=== PATIENT | female | born 1975 | race African-American/Black ===

== ENCOUNTER 2018-07-28 03:10 | Emergency (ER) | payer BC ==
[~2018-07-28] VITALS: Ht 180.3 cm; Wt 99.8 kg
[2018-07-28 03:15] VITALS: BP 171/103
[2018-07-28 03:47] LABS: BILIRUBIN,URINE NEGATIVE (NEG); CLARITY,URINE CLEAR; COLOR,URINE YELLOW; NITRITE,URINE NEGATIVE (NEG); PH,URINE 6.5; PROTEIN,URINE NEGATIVE (NEG-TRACE)
[2018-07-28 03:57] LABS: SQUAMOUS EPITHELIAL CELL,UR FEW /LPF
[2018-07-28 03:58] LABS: AMORPHOUS SEDIMENT,UR PRESENT /HPF; BACTERIA,URINE FEW /HPF (0-FEW); WBC,URINE OCC /HPF (0-4)
[2018-07-28] MEDS ORDERED: metroNIDAZOLE 500 MG TABLET PO ONE (04:00)
[2018-07-28] MEDS ORDERED: METR500T PO (04:12)
--- NOTE | 2018-07-28 04:12 | PHYS DOC ---
Past Medical History Past Medical History: No Pertinent History Past Surgical History: No Surgical History Alcohol Use: Occasionally Drug Use: None Adult General Chief Complaint Chief Complaint: PELVIC PAIN HPI HPI Patient is a 42 year old [f__sex] who presents with [] Review of Systems Review of Systems Constitutional: Denies fever or chills [] Eyes: Denies change in visual acuity, redness, or eye pain [] HENT: Denies nasal congestion or sore throat [] Respiratory: Denies cough or shortness of breath [] Cardiovascular: No additional information not addressed in HPI [] GI: Denies abdominal pain, nausea, vomiting, bloody stools or diarrhea [] : Denies dysuria or hematuria [] Musculoskeletal: Denies back pain or joint pain [] Integument: Denies rash or skin lesions [] Neurologic: Denies headache, focal weakness or sensory changes [] Endocrine: Denies polyuria or polydipsia [] All other systems were reviewed and found to be within normal limits, except as documented in this note. Current Medications Current Medications Current Medications Medications (Trade) Dose Ordered Sig/Salma Start Time Stop Time Status Last Admin Dose Admin Metronidazole (Flagyl) 500 mg 1X ONCE 07/28/18 04:00 07/28/18 04:01 UNV Physical Exam Physical Exam Constitutional: Well developed, well nourished, no acute distress, non-toxic appearance. [] HENT: Normocephalic, atraumatic, bilateral external ears normal, oropharynx moist, no oral exudates, nose normal. [] Eyes: PERRLA, EOMI, conjunctiva normal, no discharge. [] Neck: Normal range of motion, no tenderness, supple, no stridor. [] Cardiovascular:Heart rate regular rhythm, no murmur [] Lungs & Thorax: Bilateral breath sounds clear to auscultation [] Abdomen: Bowel sounds normal, soft, no tenderness, no masses, no pulsatile masses. [] Skin: Warm, dry, no erythema, no rash. [] Back: No tenderness, no CVA tenderness. [] Extremities: No tenderness, no cyanosis, no clubbing, ROM intact, no edema. [] Neurologic: Alert and oriented X 3, normal motor function, normal sensory function, no focal deficits noted. [] Psychologic: Affect normal, judgement normal, mood normal. [] Current Patient Data Vital Signs Vital Signs Date Time Temp Pulse Resp B/P (MAP) Pulse Ox O2 Delivery O2 Flow Rate FiO2 07/28/18 03:15 98.2 89 18 171/103 (125) 99 Room Air 98.2 Lab Values Laboratory Tests Test 07/28/18 03:20 07/28/18 03:36 Urine Collection Type Unknown Urine Color Yellow Urine Clarity Clear Urine pH 6.5 Urine Specific [place]beck 1.025 Urine Protein Negative mg/dL (NEG-TRACE) Urine Glucose (UA) Negative mg/dL (NEG) Urine Ketones (Stick) Negative mg/dL (NEG) Urine Blood Moderate (NEG) Urine Nitrite Negative (NEG) Urine Bilirubin Negative (NEG) Urine Urobilinogen Dipstick 1.0 mg/dL (0.2 mg/dL) Urine Leukocyte Esterase Negative (NEG) Urine RBC 6-10 /HPF (0-2) Urine WBC Occ /HPF (0-4) Urine Squamous Epithelial Cells Few /LPF Urine Amorphous Sediment Present /HPF Urine Bacteria Few /HPF (0-FEW) Urine Mucus Mod /LPF POC Urine HCG, Qualitative Hcg negative (Negative) Microbiology 07/28/18 Wet Prep - Final, Complete EKG EKG [] Radiology/Procedures Radiology/Procedures [] Course & Med Decision Making Course & Med Decision Making Pertinent Labs and Imaging studies reviewed. (See chart for details) [] Dragon Disclaimer Dragon Disclaimer This electronic medical record was generated, in whole or in part, using a voice recognition dictation system. Departure Departure Impression: Primary Impression: Retained tampon Additional Impression: Bacterial vaginitis Disposition: 01 HOME, SELF-CARE Condition: STABLE Patient Instructions: Bacterial Vaginosis, [id number], Vaginal Foreign Body, [id number] Scripts Metronidazole (FLAGYL) 500 Mg Tablet 500 MG PO BID for 7 Days, #14 TAB Prov: ODALYS LANE DO 07/28/18 Problem Qualifiers Primary Impression: Retained tampon Encounter type: initial encounter Qualified Codes: T19.2XXA - Foreign body in vulva and vagina, initial encounter OADLYS LANE DO July 28, 2018 04:12
[2018-07-30 14:11] LABS: GC PROBE Negative (Negative)
== END 2018-07-28 04:50 | disposition home or self-care (01) ==
LOC: ER 03:10
DX: T19.2XXA Foreign body in vulva and vagina, initial encounter (principal); N76.0 Acute vaginitis; B96.89 Other specified bacterial agents as the cause of diseases classified elsewhere; X58.XXXA Exposure to other specified factors, initial encounter; Y93.89 Activity, other specified; Y92.89 Other specified places as the place of occurrence of the external cause; Y99.8 Other external cause status
CPT/HCPCS: 81001; 81025; 87491; 87591; 99284; Q0111

== ENCOUNTER 2019-02-10 07:56 | Emergency (ER) | payer BC ==
[~2019-02-10] VITALS: Ht 180.3 cm; Wt 99.8 kg
[~2019-02-10 07:56] MED LIST: METR500T PO
[2019-02-10] MEDS ORDERED: IBUPROFEN 200 MG TABLET. PO ONE (08:15)
--- NOTE | 2019-02-10 08:15 | PHYS DOC ---
Past Medical History Past Medical History: Hypertension Alcohol Use: Occasionally Drug Use: None Adult General Chief Complaint Chief Complaint: HAND PROBLEM HPI HPI Patient is a 43-year-old female who presents to the emergency department for e valuation of atraumatic hand pain, primarily at her left third and fourth metacarpal heads, which has developed over the past 2 days. She took a dose of ibuprofen at home with no relief. She has not had any numbness or weakness, but is unable to fully flex her fist secondary to pain. She denies any other symptoms, no rashes, no fevers or chills, no chest pain or shortness of breath. She is noted to be hypertensive, and states that she has a history of hypertension, and has not been taking medication for over a year, she states she recently moved to this area from [place] and does not have any local physicians. Review of Systems Review of Systems Constitutional: Denies fever or chills [] Eyes: Denies change in visual acuity, redness, or eye pain [] HENT: Denies nasal congestion or sore throat [] Respiratory: Denies cough or shortness of breath [] Cardiovascular: No additional information not addressed in HPI [] GI: Denies abdominal pain, nausea, vomiting, bloody stools or diarrhea [] : Denies dysuria or hematuria. Denies . [] Musculoskeletal: Denies back pain or joint pain, other than as noted in the history of present illness. [] Integument: Denies rash or skin lesions [] Neurologic: Denies headache, focal weakness or sensory changes [] Endocrine: Denies polyuria or polydipsia [] All other systems were reviewed and found to be within normal limits, except as documented in this note. Current Medications Current Medications Current Medications Medications (Trade) Dose Ordered Sig/Salma Start Time Stop Time Status Last Admin Dose Admin Ibuprofen (Motrin) 600 mg 1X ONCE 02/10/19 08:15 02/10/19 08:16 DC 02/10/19 08:28 600 MG Allergies Allergies Allergies Coded Allergies Type Severity Reaction Last Updated Verified No Known Drug Allergies 02/10/19 No Physical Exam Physical Exam PHYSICAL EXAM: CONSTITUTIONAL: Well developed, well nourished HEAD: normocephalic, atraumatic EENT: PERRL, EOMI. Conjunctivae normal color, sclerae non-icteric; moist mucous membranes. NECK: Supple, non-tender; no meningismus. LUNGS: Lungs CTA, breathing even and unlabored. Normal air movement. HEART: Regular rate and rhythm, no murmur CHEST: No deformity; non-tender ABDOMEN: The abdomen is soft, and non-tender, no masses or bruits. EXTREM: Normal ROM; no deformity, no calf tenderness. Normal pulses palpable in all extremities. There is no pedal edema. There is questionable very mild soft tissue edema noted to the dorsal aspect of the left hand over the third and fourth metacarpal heads, with tenderness to palpation in this area. The fingers are nontender, there is no warmth or erythema, there is no palmar soft tissue swelling or tenderness. Remainder the extremities are unremarkable. SKIN: No rash; no diaphoresis NEURO: Alert; normal speech and cognition; CN's grossly intact; strength grossly intact without focal deficit. BACK: No CVA TTP. Current Patient Data Vital Signs Vital Signs Date Time Temp Pulse Resp B/P (MAP) Pulse Ox O2 Delivery O2 Flow Rate FiO2 02/10/19 08:03 97.6 88 16 208/130 (156) 98 97.6 Lab Values Laboratory Tests Test 02/10/19 08:11 White Blood Count 6.6 x10^3/uL (4.0-11.0) Red Blood Count 4.88 x10^6/uL (3.50-5.40) Hemoglobin 12.8 g/dL (12.0-15.5) Hematocrit 38.8 % (36.0-47.0) Mean Corpuscular Volume 80 fL (79-100) Mean Corpuscular Hemoglobin 26 pg (25-35) Mean Corpuscular Hemoglobin Concent 33 g/dL (31-37) Red Cell Distribution Width 17.1 % (11.5-14.5) H Platelet Count 300 x10^3/uL (140-400) Neutrophils (%) (Auto) 53 % (31-73) Lymphocytes (%) (Auto) 36 % (24-48) Monocytes (%) (Auto) 9 % (0-9) Eosinophils (%) (Auto) 1 % (0-3) Basophils (%) (Auto) 1 % (0-3) Neutrophils # (Auto) 3.5 x10^3/uL (1.8-7.7) Lymphocytes # (Auto) 2.3 x10^3/uL (1.0-4.8) Monocytes # (Auto) 0.6 x10^3/uL (0.0-1.1) Eosinophils # (Auto) 0.1 x10^3/uL (0.0-0.7) Basophils # (Auto) 0.1 x10^3/uL (0.0-0.2) Sodium Level 137 mmol/L (136-145) Potassium Level 4.0 mmol/L (3.5-5.1) Chloride Level 104 mmol/L (98-107) Carbon Dioxide Level 24 mmol/L (21-32) Anion Gap 9 (6-14) Blood Urea Nitrogen 9 mg/dL (7-20) Creatinine 0.7 mg/dL (0.6-1.0) Estimated GFR (Cockcroft-Gault) 109.5 Glucose Level 96 mg/dL (70-99) Calcium Level 8.5 mg/dL (8.5-10.1) C-Reactive Protein, Quantitative 2.9 mg/L (0-3.3) Laboratory Tests 02/10/19 08:11 Laboratory Tests 02/10/19 08:11 EKG EKG [] Radiology/Procedures Radiology/Procedures PROCEDURE: HAND LEFT 3V HAND LEFT 3V DATE: 02/10/2019 8:05 AM INDICATION: Fourth digit pain and swelling in the region of the MCP joint COMPARISON: None. FINDINGS: Bones: Small ossific fragment along the base of the fourth proximal phalanx. Joints: The joint spaces are normal. Miscellaneous: None. IMPRESSION: Small ossific fragment along the base of the fourth proximal phalanx, which may represent a fracture fragment. Donor site not seen with certainty, but most likely the base of the fourth proximal phalanx given location.[] Course & Med Decision Making Course & Med Decision Making Pertinent Labs and Imaging studies reviewed. (See chart for details) []Patient was given resources for local physicians to establish primary care, I discussed importance of close follow-up, use of NSAIDs for pain control, splint until follow-up and splint care, and return precautions. SPLINT APPLICATION: An ulnar gutter splint was placed on the left hand, PMS intact postplacement, splint inspected by myself postplacement. Dragon Disclaimer Dragon Disclaimer This electronic medical record was generated, in whole or in part, using a voice recognition dictation system. Departure Departure Impression: Primary Impression: Hypertension Additional Impression: Hand fracture Disposition: HOME, SELF-CARE Condition: STABLE Referrals: DAHLIA MAR MD Patient Instructions: Cast or Splint Care, Hand Fracture, Hypertension Additional Instructions: Ibuprofen 400-600 mg every 6 hours as needed for pain. Use the list of local primary care providers to help establish a local physician for further outpatient follow-up. Scripts Lisinopril/Hydrochlorothiazide (LISINOPRIL-HCTZ 10-12.5 MG TAB) 1 Each Tablet 1 TAB PO DAILY, #30 TAB 0 Refills Prov: JESUS HENRY MD 02/10/19 Problem Qualifiers JESUS HENRY MD Feb 10, 2019 08:15
[2019-02-10 08:41] LABS: BASO # 0.1 x10^3/uL (0.0-0.2); BASO % 1 % (0-3); EOS # 0.1 x10^3/uL (0.0-0.7); EOS % 1 % (0-3); HEMATOCRIT 38.8 % (36.0-47.0); HEMOGLOBIN 12.8 g/dL (12.0-15.5); LYMPH # 2.3 x10^3/uL (1.0-4.8); LYMPH % 36 % (24-48); MEAN CORPUSCULAR HEMOGLOBIN 26 pg (25-35); MEAN CORPUSCULAR HGB CONC 33 g/dL (31-37); MEAN CORPUSCULAR VOLUME 80 fL (79-100); MONO # 0.6 x10^3/uL (0.0-1.1); MONO % 9 % (0-9); NEUT # 3.5 x10^3/uL (1.8-7.7); NEUT % 53 % (31-73); PLATELET COUNT 300 x10^3/uL (140-400); RED BLOOD COUNT 4.88 x10^6/uL (3.50-5.40); RED CELL DISTRIBUTION WIDTH 17.1 % (11.5-14.5); WHITE BLOOD COUNT 6.6 x10^3/uL (4.0-11.0)
[2019-02-10 08:44] LABS: CALCIUM 8.5 mg/dL (8.5-10.1); CREATININE 0.7 mg/dL (0.6-1.0); GFR 109.5
[2019-02-10 08:46] LABS: C-REACTIVE PROTEIN 2.9 mg/L (0-3.3)
--- NOTE | 2019-02-10 09:03 | RAD ---
HAND LEFT 3V DATE: 02/10/2019 8:05 AM INDICATION: Fourth digit pain and swelling in the region of the MCP joint COMPARISON: None. FINDINGS: Bones: Small ossific fragment along the base of the fourth proximal phalanx. Joints: The joint spaces are normal. Miscellaneous: None. IMPRESSION: Small ossific fragment along the base of the fourth proximal phalanx, which may represent a fracture fragment. Donor site not seen with certainty, but most likely the base of the fourth proximal phalanx given location. Electronically signed by: Nicholas Livingston MD (02/10/2019 9:00 AM) [facility]
[2019-02-10] MEDS ORDERED: LISI1TAB23 PO (09:12)
[2019-02-10 09:25] VITALS: BP 205/114
== END 2019-02-10 09:25 | disposition home or self-care (01) ==
LOC: ER 07:56
DX: S62.615A Displaced fracture of proximal phalanx of left ring finger, initial encounter for closed fracture (principal); I10 Essential (primary) hypertension; X58.XXXA Exposure to other specified factors, initial encounter; Y93.89 Activity, other specified; Y92.89 Other specified places as the place of occurrence of the external cause; Y99.8 Other external cause status
CPT/HCPCS: 29125; 36415; 73130; 80048; 85025; 85651; 86140; 99285

== ENCOUNTER 2020-07-26 14:25 | Emergency (ER) | payer BC ==
[~2020-07-26] VITALS: Ht 154.9 cm; Wt 107.0 kg
[~2020-07-26 14:25] MED LIST changes: +AMIODARONE 150 MG/3 ML VIAL ONE; +EPINEPHrine SYRINGE 1 MG/10 ML SYRINGE ONE; +LISI1TAB23 PO; +NALOXONE 0.4 MG/ML VIAL. ONE; +SODIUM BICARB ADULT 8.4% 50 MEQ/50 ML DISP.SYRIN. ONE
[2020-07-26] MEDS ORDERED: PROPOFOL 100 ML IV ONE (15:10)
[2020-07-26] MEDS ORDERED: PROPOFOL 100 ML IV PRN (15:15)
[2020-07-26] MEDS ORDERED: ROCURONIUM 50 MG/5 ML VIAL. IV ONE (15:15)
[2020-07-26] MEDS ORDERED: ETOMIDATE 20 MG/10 ML VIAL. IV ONE (15:15)
[2020-07-26] MEDS ORDERED: AMIODARONE 150 MG in IV DEXTROSE 5% 100ML 100 ML IV ONE (15:30)
[2020-07-26] MEDS ORDERED: SODIUM BICARB ADULT 8.4% 50 MEQ/50 ML DISP.SYRIN. IV ONE (15:30)
[2020-07-26] MEDS ORDERED: NALOXONE 2 MG/2 ML DISP.SYRIN. IV ONE (15:30)
[2020-07-26] MEDS ORDERED: IV NORMAL SALINE 1000ML BAG 1,000 ML IV ONE ×2 (15:30→17:00)
[2020-07-26] MEDS ORDERED: AMIODARONE 150 MG/3 ML VIAL IVP ONE (15:30)
--- NOTE | 2020-07-26 15:40 | PHYS DOC ---
Past Medical History Past Medical History: Hypertension (Untreated) Past Medical History Limited secondary to CODE BLUE Past Surgical History Limited secondary to CODE BLUE Smoking Status: Light Tobacco Smoker Alcohol Use: None Drug Use: None Social History Limited secondary to CODE BLUE General Adult EDM: Chief Complaint: HEADACHE HPI: HPI: Patient is a 44-year-old female presents to the ER today with sudden onset of acute headache 10 out of 10 that started upon waking. Patient reports some associated nausea. While out in triage patient subsequently reported increased nausea with interval syncopal episode. ED team immediately assessed patient in waiting room with concern for agonal breathing. Patient was minimally responsive and therefore brought emergently back to trauma room. At that time it was determined patient without pulses. LANE REID called and CPR initiated. Family reports patient with family history of cerebral aneurysm. Patient has past medical history of hypertension. History of present illness limited secondary to CODE BLUE. Review of Systems: Review of Systems: Review of systems limited secondary to CODE BLUE Heart Score: C/O Chest Pain: N/A Current Medications: Current Medications Medications (Trade) Dose Ordered Sig/Salma Start Time Stop Time Status Last Admin Dose Admin Amiodarone HCl (Cordarone) 150 mg 1X ONCE 07/26/20 15:30 07/26/20 15:31 Amiodarone HCl 150 mg/Dextrose 103 ml @ 618 mls/hr 1X ONCE 07/26/20 15:30 07/26/20 15:39 Amiodarone HCl 450 mg/Dextrose 259 ml @ 33 mls/hr CONT PRN 07/26/20 15:15 Chlorhexidine Gluconate (Peridex) 15 ml BID 07/26/20 21:00 Etomidate (Amidate) 20 mg 1X ONCE 07/26/20 15:15 07/26/20 15:20 DC Naloxone HCl (NARCAN 2mg SYRINGE) 2 mg 1X ONCE 07/26/20 15:30 07/26/20 15:31 Propofol 100 ml @ 0 mls/hr CONT PRN 07/26/20 15:15 Rocuronium [place] (Zemuron) 50 mg 1X ONCE 07/26/20 15:15 07/26/20 15:20 DC Sodium Bicarbonate (Sodium Bicarb Adult 8.4% Syr) 50 meq 1X ONCE 07/26/20 15:30 07/26/20 15:31 Sodium Chloride 1,000 ml @ 1,000 mls/hr 1X ONCE 07/26/20 15:30 07/26/20 16:29 Allergies: Allergies: Allergies Coded Allergies Type Severity Reaction Last Updated Verified No Known Drug Allergies 02/10/19 No Physical Exam: PE: Constitutional: Well developed, well nourished, no acute distress, non-toxic appearance HENT: Normocephalic, atraumatic Eyes: PERRL, EOMI, conjunctiva normal, no discharge Neck: Normal range of motion, no tenderness, supple Lungs & Thorax: No respiratory distress, equal chest rise and fall Abdomen: Soft, no tenderness Skin: Warm, dry, no erythema, no rash Back: No tenderness, no CVA tenderness Extremities: No tenderness, ROM intact, no edema Neurologic: Alert and oriented X 3, normal motor function, normal sensory function, no focal deficits noted Psychologic: Affect normal, judgment normal EKG: EKG: @1508 Sinus tachycardia at 110bpm, NO ST elevation, ST depression noted to V2- V4, t wave inversion I and aVL, no prior EKG per [facility] for comparsion. Radiology/Procedures: Radiology/Procedures: PROCEDURE: CHEST AP ONLY Exam performed: One view chest. Indication: Reason: CODE Blue, s/p intubation / Spl. Instructions: / History: Date of Service: 07/26/2020 3:44 PM Comparison: None available. Single AP semiupright portable view chest findings: Cardiomediastinal silhouette is mildly enlarged, however may relate related to semiupright position.. No acute infiltrates, effusion or pneumothorax is detected. There is a endotracheal tube terminating at the level of clavicles. The bony structures are normal. Impression: No acute cardiopulmonary process is detected. Electronically signed by: Jayne Conner MD (07/26/2020 3:50 PM) [facility] PROCEDURE: CHEST AP ONLY AP chest. HISTORY: Adjustment of endotracheal tube AP view was taken of the chest. Endotracheal tube is at the level the clavicles just above the aortic arch. Heart is normal in size. There is mild gastric distention. There is mild haziness in the lungs from infiltrates or mild edema. There is left retrocardiac atelectasis or infiltrate. IMPRESSION: 1. Endotracheal tube appears in good position. 2. Left retrocardiac atelectasis or infiltrate with air bronchograms. Electronically signed by: Abran Gill MD (07/26/2020 4:25 PM) [facility] PROCEDURE: CT CODE STROKE HEAD WO & CTA HEAD & NECK CT arteriogram the brain before and after contrast, CT arteriogram of the carotid arteries with contrast HISTORY: Code stroke, headache, cardiac arrest CT arteriogram the carotid arteries CT arteriogram the carotid arteries was done using 75 mL Isovue-370 contrast. Sagittal and coronal MIP images were reconstructed. There is motion artifact from respiration. There is mild atelectasis or infiltrates in the upper lobes. There is an endotracheal tube in good position. Origins the great vessels at the aortic arch are widely patent. There are normal vertebral arteries. Both vertebral arteries supply flow to the basilar artery. Common carotid arteries are normal. There is no stenosis at the carotid bifurcations. IMPRESSION: 1. No carotid stenosis noted. 2. Normal vertebral arteries. 3. Mild atelectasis or infiltrates in the upper lobes. 4. Endotracheal tube in good position. End impression CT arteriogram of the brain CT arteriogram of the brain was done before and after contrast. There is mild m otion artifact. There is no skull fracture. Sinuses are clear. There is no intracranial hemorrhage. Ventricles are normal in size. There is no mass effect or shift of the midline. Postcontrast images show the basilar artery is normal. Posterior cerebral a rteries are patent. There is no posterior fossa aneurysm. Intracranial internal carotid arteries are normal. Anterior cerebral arteries are normal. There is a normal anterior communicating artery. Right middle cerebral artery is normal. There is an aneurysm at the bifurcation of the middle cerebral artery on the left. There is aneurysm appears partially thrombosed. Aneurysm is best seen on the sagittal and coronal reconstructions. A major vessel occlusion is not definitively identified. There is no pathologic enhancement. IMPRESSION: 1. Left middle cerebral artery aneurysm. 2. No major vessel occlusion intracranially. 3. No intracranial hemorrhage. 4. Mild motion artifact. FOR INTERNAL CODING PURPOSES Critical result: Findings discussed with ER physician at 07/26/2020 3:55PM. RESULT CODE: (C) PQRS Compliance Statement: One or more of the following individualized dose reduction techniques were utilized for this examination: 1. Automated exposure control 2. Adjustment of the mA and/or kV according to patient size 3. Use of iterative reconstruction technique Electronically signed by: Abran Gill MD (07/26/2020 4:07 PM) [facility] Course & Med Decision Making: Course & Med Decision Making Pertinent Labs and Imaging studies reviewed. (See chart for details) Patient presents with report of 10/10 headache upon waking this morning. Family history of cerebral aneurysm. Patient therefore presented to the ER. After patient was triaged and awaiting room assignment patient reported she became very nauseated and needed to vomit. Patient reportedly vomited in triage with s ubsequent frequent syncopal episode and became unresponsive. Patient was noted to have agonal breathing and was emergently brought back to trauma room. Patient did not have a pulse at that time. ACLS protocol utilized. Patient noted to have V. fib arrest. Patient defibrillated. Amiodarone bolus of 300 mg provided. Intubation performed. Interval return of spontaneous circulation. Patient noted to have significantly elevated blood pressure. History of noncompliance with her blood pressure. Concern for aneurysm and therefore patient sent for code stroke CT head and CTA head and neck. No definitive intracranial hemorrhage appreciated however notation of the left MCA aneurysm appreciated. HTN addressed with Cardene gtt. Sedation with propofol. Amiodorone gtt initated. EKG with some ST depressions. Discussed case with Dr. Peralta (cardiology) who is in agreement with current treatment. Discussed CT findings with Dr. Mills (neurosurgery). Given MCA aneurysm and elevated blood pressure, Dr. Mills recommends transfer to as unable to treat aneurysms at [facility]. Utilized transfer neurology line. Discussed case with . [facility] in agreement for acceptance to Neuro ICU. Dr. Delatorre accepting. Patient with subsequent loss of peripheral line. Given multiple medications/gtts and acuity of condition, decision to place central line. Utilized bedside ultrasound with successful placement of RIJ triple lumen catheter. CXR confirmed good position without pneumothorax. Of note: patient troponin elevated secondary to vfib arrest. Hypokalemia noted. Potassium not able to start before transfer. Patient's blood pressure subsequently became significantly improved/low. Cardene therefore discontinued. Patient with difficulty with sedation only on propofol. Fentanyl and Versed IV pushes provided. Decision to switch to Versed drip. Discussed findings and plan with patient's spouse and family, who acknowledge understanding and agreement with transfer to for further evaluation and t reatment. Dago Disclaimer: Dago Disclaimer: This electronic medical record was generated, in whole or in part, using a voice recognition dictation system. Central Line Central Line : Central Line Lumen: triple Central Line Procedure: sterile drapes applied, sterile dressing applied Central Line Postion: internal jugular (R) Anesthesia: Lidocaine cc's of anesthesia: 3 Complications: none Central Line Post Position: sutured, good blood return, position confirmed w/ CXR Progress Emergent consent obtained. Time out performed. Hand hygiene utilized. Sterile attire donned. Right neck cleaned with ChloraPrep. Sterile drape applied. Bedside ultrasound utilized with visualization of nonpulsatile, oval-shaped, compressible, hypoechoic structure consistent for right internal jugular. Anesthesia obtained via a 30 -gauge hypodermic needle with (3) mL's of lidocaine 1% without epinephrine. Right IJ accessed with needle with successful placement of guidewire and subsequent catheter via Seldinger technique. Guidewire successfully removed. Good blood return from all ports. Flushes with ease to all ports. Sterile dressing applied. Confirmatory x-ray obtained with good placement/positioning of catheter and no pneumothorax.. Patient tolerated procedure well and without difficulty. Intubation Intubation : Intubation Method: orotracheal Tube Size (cm): 7.5 Breath Sounds after Intubation: equal Intubation Complications: no complications Post Intubation Xray: Yes Progress Emergent consent utilized. Time out performed. Hand hygiene utilized. Direct laryngoscopy utilized with Vera blade after RSI medications of 20 mg of etom idate and 50 mg of rocuronium provided. Patient noted to have some white frothy secretions which were suctioned with Yankauer suction catheter. Successful placement of 7.5 cuffed ET tube placed on first attempt and secured in place 22 cm at the lip. Fogging noted in blade with positive CO2 color change. Lungs auscultated and equal bilaterally. Patient placed on ventilator and confirmatory chest x-ray obtained with high riding positioning. ETT advanced to 24cm to lip. Departure Departure Impression: Primary Impression: Cardiac arrest with ventricular fibrillation Additional Impressions: Hypertensive emergency Aneurysm of middle cerebral artery Elevated troponin Hypokalemia Disposition: 02 [facility] (JAY Dr. Delatorre accepting to Neuro ICU) Condition: CRITICAL Referrals: NO PCP (PCP) Critical Care Time Critical care time was 30 minutes which includes time at bedside, spent in discussion of patient's care with specialists and/or family members, with interpretation of laboratory and/or radiological studies and is exclusive of procedures. ODALYS LANE DO July 26, 2020 15:40
[2020-07-26] MEDS ORDERED: IOHEXOL 300 MG/ML 100ML VIAL. IV ONE (15:45)
[2020-07-26] MEDS: AMIODARONE 450 MG in IV DEXTROSE 5% 250 ML IV PRN ×2 (15:52→21:38)
--- NOTE | 2020-07-26 15:52 | RAD ---
Exam performed: One view chest. Indication: Reason: CODE Blue, s/p intubation / Spl. Instructions: / History: Date of Service: 07/26/2020 3:44 PM Comparison: None available. Single AP semiupright portable view chest findings: Cardiomediastinal silhouette is mildly enlarged, however may relate related to semiupright position.. No acute infiltrates, effusion or pneumothorax is detected. There is a endotracheal tube terminatin g at the level of clavicles. The bony structures are normal. Impression: No acute cardiopulmonary process is detected. Electronically signed by: Jayne Conner MD (07/26/2020 3:50 PM) [facility]
--- NOTE | 2020-07-26 16:10 | RAD ---
CT arteriogram the brain before and after contrast, CT arteriogram of the carotid arteries with contr ast HISTORY: Code stroke, headache, cardiac arrest CT arteriogram the carotid arteries CT arteriogram the carotid arteries was done using 75 mL Isovue-370 contrast. Sagittal and coronal [place] P images were reconstructed. There is motion artifact from respiration. There is mild atelectasis or infiltrates in the upper lobes. There is an endotracheal tube in good position. Origins the great ves sels at the aortic arch are widely patent. There are normal vertebral arteries. Both vertebral arteri es supply flow to the basilar artery. Common carotid arteries are normal. There is no stenosis at the carotid bifurcations. IMPRESSION: 1. No carotid stenosis noted. 2. Normal vertebral arteries. 3. Mild atelectasis or infiltrates in the upper lobes. 4. Endotracheal tube in good position. End impression CT arteriogram of the brain CT arteriogram of the brain was done before and after contrast. There is mild motion artifact. There is no skull fracture. Sinuses are clear. There is no intracranial hemorrhage. Ventricles are normal i n size. There is no mass effect or shift of the midline. Postcontrast images show the basilar artery is normal. Posterior cerebral arteries are patent. There is no posterior fossa aneurysm. Intracranial internal carotid arteries are normal. Anterior cerebral arteries are normal. There is a normal anterior communicating artery. Right middle cerebral artery is normal. There is an aneurysm at the bifurcation of the middle cerebral artery on the left. There is aneurysm appears partially thrombosed. Aneurysm is best seen on the sagittal and coronal reconstructi ons. A major vessel occlusion is not definitively identified. There is no pathologic enhancement. IMPRESSION: 1. Left middle cerebral artery aneurysm. 2. No major vessel occlusion intracranially. 3. No intracranial hemorrhage. 4. Mild motion artifact. FOR INTERNAL CODING PURPOSES Critical result: Findings discussed with ER physician at 07/26/2020 3:55PM. RESULT CODE: (C) PQRS Compliance Statement: One or more of the following individualized dose reduction techniques were utilized for this examinat ion: 1. Automated exposure control 2. Adjustment of the mA and/or kV according to patient size 3. Use of iterative reconstruction technique Electronically signed by: Abran Gill MD (07/26/2020 4:07 PM) [facility]
[2020-07-26 16:21] LABS: BASO # 0.1 x10^3/uL (0.0-0.2); BASO % 1 % (0-3); EOS % 0 % (0-3); HEMATOCRIT 39.6 % (36.0-47.0); LYMPH # 3.3 x10^3/uL (1.0-4.8); LYMPH % 36 % (24-48); MEAN CORPUSCULAR HEMOGLOBIN 28 pg (25-35); MEAN CORPUSCULAR HGB CONC 33 g/dL (31-37); MEAN CORPUSCULAR VOLUME 84 fL (79-100); MONO # 0.5 x10^3/uL (0.0-1.1); MONO % 6 % (0-9); NEUT # 5.2 x10^3/uL (1.8-7.7); NEUT % 57 % (31-73); PLATELET COUNT 146 x10^3/uL (140-400); RED BLOOD COUNT 4.71 x10^6/uL (3.50-5.40); RED CELL DISTRIBUTION WIDTH 16.7 % (11.5-14.5); WHITE BLOOD COUNT 9.1 x10^3/uL (4.0-11.0)
--- NOTE | 2020-07-26 16:27 | RAD ---
AP chest. HISTORY: Adjustment of endotracheal tube AP view was taken of the chest. Endotracheal tube is at the level the clavicles just above the aortic arch. Heart is normal in size. There is mild gastric distention. There is mild haziness in the lungs from infiltrates or mild edema. There is left retrocardiac atelectasis or infiltrate. IMPRESSION: 1. Endotracheal tube appears in good position. 2. Left retrocardiac atelectasis or infiltrate with air bronchograms. Electronically signed by: Abran Gill MD (07/26/2020 4:25 PM) [facility]
[2020-07-26 16:33] LABS: BASE EXCESS COOX -11 mmol/L (-3-3); HCO3 COOX 17 mmol/L (21-28); METHEMOGLOBIN 0.3 % (0.0-1.9); OXYHEMOGLOBIN 89.1 %; PCO2 COOX 41 mmHg (35-46); PO2 COOX 77 mmHg (75-108); SAT O2 COOX 93 % (92-99)
[2020-07-26] MEDS ORDERED: MIDAZOLAM HCL/PF 5 MG/5 ML VIAL. IV ONE (17:00)
[2020-07-26] MEDS ORDERED: fentaNYL PF VIAL 100 MCG/2 ML VIAL IV ONE ×2 (17:00→18:30)
[2020-07-26] MEDS ORDERED: MIDAZOLAM 100mg/100ml NS BAG 100 ML IV PRN (17:00)
[2020-07-26 17:55] LABS: PROTHROMBIN TIME PATIENT 14.8 SEC (11.7-14.0)
[2020-07-26 17:56] LABS: CALCIUM 7.8 mg/dL (8.5-10.1); GFR 72.2; POTASSIUM 3.3 mmol/L (3.5-5.1)
--- NOTE | 2020-07-26 17:58 | EKG ---
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
[2020-07-26 18:02] LABS: ALBUMIN 3.4 g/dL (3.4-5.0); ALBUMIN/GLOBULIN RATIO 1.1 (1.0-1.7); MAGNESIUM 1.8 mg/dL (1.8-2.4); TOTAL BILIRUBIN 0.6 mg/dL (0.2-1.0); TOTAL PROTEIN 6.5 g/dL (6.4-8.2)
[2020-07-26 18:07] VITALS: BP 106/81
[2020-07-26 18:29] LABS: BILIRUBIN,URINE NEGATIVE (NEG); CLARITY,URINE CLEAR; COLOR,URINE YELLOW; NITRITE,URINE NEGATIVE (NEG); PH,URINE 6.5 (<5.0-8.0); PROTEIN,URINE 100 mg/dL (NEG-TRACE); UROBILINOGEN,URINE 0.2 mg/dL (0.2 mg/dL)
[2020-07-26 18:32] LABS: BARBITURATES NEG (NEG); BENZODIAZEPINES POS (NEG); CANNABINOIDS NEG (NEG); COCAINE NEG (NEG); METHADONE NEG (NEG); OPIATES NEG (NEG); PHENCYCLIDINE NEG (NEG)
[2020-07-26 18:36] LABS: AMPHETAMINE/METHAMPHETAMINE NEG (NEG)
[2020-07-26 18:40] LABS: GRANULAR CASTS,URINE FEW /HPF; HYALINE CASTS, URINE FEW /HPF
[2020-07-26 18:41] LABS: AMORPHOUS SEDIMENT,UR PRESENT /HPF; BACTERIA,URINE 0 /HPF (0-FEW); WBC,URINE 0 /HPF (0-4)
--- NOTE | 2020-07-26 18:52 | RAD ---
XR CHEST 1V 07/26/2020 5:57 PM INDICATION: Right internal jugular central line placement COMPARISON: 07/26/2020 TECHNIQUE: Portable frontal view of the chest is provided. FINDINGS/ IMPRESSION: 1. Cardiomediastinal silhouette is similar in appearance. Increased patchy consolidative changes iden tified in the right lung could represent asymmetric pulmonary edema versus developing pulmonary infil trate. 2. Right IJ central venous catheter is identified with the distal tip projecting over the distal supe rior vena cava. Endotracheal tube terminates 5 cm above the level of the tex. Nasogastric tube is coursing below the level of the diaphragm with the distal tip not visualized on this radiograph. 3. No pneumothorax. Trace right pleural effusion. Electronically signed by: Shahla Sy MD (07/26/2020 6:49 PM) [facility]
[2020-07-26] MEDS ORDERED: CHLORHEXIDINE 0.12% 15 ML MOUTHWASH. MM SCH (21:00)
== END 2020-07-26 18:40 | disposition short-term general hospital (02) ==
LOC: ER 14:25
DX: I46.9 Cardiac arrest, cause unspecified (principal); I49.01 Ventricular fibrillation; I16.1 Hypertensive emergency; I10 Essential (primary) hypertension; I67.1 Cerebral aneurysm, nonruptured; R77.8 Other specified abnormalities of plasma proteins; E87.6 Hypokalemia; Z72.0 Tobacco use
CPT/HCPCS: 31500; 36415; 36556; 36600; 51702; 70450; 70496; 70498; 71045; 80053; 80307; 81001; 82553; 82805; 82962; 83735; 83880; 84484; 85025; 85610; 85730; 93005; 96361; 96374; 99291; G0480; J0171; J0282; J2250; J2310; J2704; J3010; J3490; J7030; J7050; J7060; Q9967; 94002